=== PATIENT | male | born 1985 | race Caucasian/White ===

== ENCOUNTER 2018-02-12 09:44 | Emergency (ER) | payer MEDICAID ==
[~2018-02-12] VITALS: Ht 182.9 cm; Wt 88.1 kg
[2018-02-12] MEDS ORDERED: ONDANSETRON 2MG/ML, 2ML ONE (10:19)
[2018-02-12 10:25] LABS: BASOPHILS # (AUTO) 0.01 x10^3/uL (0-0.1); BASOPHILS % (AUTO) 0 % (0-1); EOSINOPHILS # (AUTO) 0.01 x10^3/uL (0-0.4); EOSINOPHILS % (AUTO) 0 % (1-7); LYMPHOCYTES # (AUTO) 0.57 x10^3/uL (1-3.4); LYMPHOCYTES % (AUTO) 6 % (22-44); MD NO; MEAN CORPUSCULAR HEMOGLOBIN 30.3 pg (27.5-34.5); MEAN CORPUSCULAR HGB CONC 33.6 g/dL (33.2-36.2); MEAN CORPUSCULAR VOLUME 90.3 fL (81-97); MEAN PLATELET VOLUME 7.9 fL (7.4-10.4); MONOCYTES # (AUTO) 0.53 x10^3/uL (0.2-0.8); MONOCYTES % (AUTO) 6 % (2-9); NEUTROPHILS # (AUTO) 8.51 x10^3/uL (1.8-6.8); NEUTROPHILS % (AUTO) 88 % (42-75); PLATELET COUNT 182 x10^3/uL (130-400); RED BLOOD COUNT 4.83 x10^6/uL (4.38-5.82); RED CELL DISTRIBUTION WIDTH 12.8 % (9.4-14.8)
[2018-02-12] MEDS ORDERED: ONDANSETRON 2MG/ML, 2ML IVPush ONE (10:30)
[2018-02-12] MEDS ORDERED: SODIUM CHLORIDE 0.9% 1,000ML IVBOLUS ONE (10:30)
[2018-02-12 10:37] LABS: ALANINE AMINOTRANSFERASE 49 U/L (12-78); ALBUMIN 3.8 g/dL (3.4-5.0); ANION GAP 7 mmol/L (5-15); CALCIUM 8.6 mg/dL (8.5-10.1); CHLORIDE 109 mmol/L (98-107); CREATININE 1.51 mg/dL (0.7-1.3)
[2018-02-12 10:39] LABS: ALKALINE PHOSPHATASE 110 U/L (45-117); BILIRUBIN,TOTAL 0.5 mg/dL (0.2-1.0); TOTAL PROTEIN 7.8 g/dL (6.4-8.2)
[2018-02-12 10:45] VITALS: BP 129/5
[2018-02-12 11:30] LABS: CLOSTRIDIUM DIFFICILE ANTIGEN NEGATIVE; CLOSTRIDIUM DIFFICILE TOXIN NEGATIVE (Negative)
== END 2018-02-12 12:53 | disposition home or self-care (01) ==
LOC: ED 11:04
DX: A04.4 Other intestinal Escherichia coli infections (principal)
CPT/HCPCS: 36415; 80053; 83690; 85025; 87324; 89055; 96361; 96374; 99284; J2405; J7030

== ENCOUNTER 2019-12-09 19:32 | Emergency (ER) | payer SELFPAY ==
[~2019-12-09] VITALS: Ht 182.9 cm; Wt 79.2 kg
--- NOTE | 2019-12-09 20:51 | NUR ---
RECHECK. HEAD CT WNL.
--- NOTE | 2019-12-09 21:06 | NUR ---
report to handy capone. as
--- NOTE | 2019-12-09 21:08 | NUR ---
received report from PEGGY Hart. patient for discharge.
--- NOTE | 2019-12-09 21:17 | NUR ---
patient discharged with prescriptions and instruction. verbalized understanding.
[2019-12-09 21:18] VITALS: BP 112/67
== END 2019-12-09 21:26 | disposition home or self-care (01) ==
LOC: ED 21:24
DX: G44.329 Chronic post-traumatic headache, not intractable (principal); Z90.89 Acquired absence of other organs; Z87.891 Personal history of nicotine dependence
CPT/HCPCS: 70450; 99284

== ENCOUNTER 2020-09-25 15:49 | Emergency (ER) | payer MEDICAID ==
[~2020-09-25] VITALS: Ht 182.9 cm; Wt 82.4 kg
[2020-09-25 15:54] VITALS: BP 127/76
[2020-09-25] MEDS ORDERED: LIDOCAINE-MPF 1%, 2ML ONE (16:16)
[2020-09-25] MEDS ORDERED: CEFTRIAXONE 1,000 MG ONE (16:16)
[2020-09-25] MEDS ORDERED: AZITHROMYCIN 500 MG TABLET ONE (16:16)
--- NOTE | 2020-09-25 16:23 | NUR ---
TASK RN COVERING MEAL BREAK. PT MEDICATED PER ERP ORDER. URINE COLLECTED/SENT TO LAB. CALL LIGHT WITHIN REACH.
[2020-09-25] MEDS ORDERED: AZITHROMYCIN 500 MG TABLET PO ONE (16:30)
[2020-09-25] MEDS ORDERED: CEFTRIAXONE 1,000 MG IM ONE (16:30)
== END 2020-09-25 17:30 | disposition home or self-care (01) ==
LOC: ED 17:23
DX: N34.1 Nonspecific urethritis (principal); F17.200 Nicotine dependence, unspecified, uncomplicated
CPT/HCPCS: 87491; 87591; 96372; 99283; J0696